=== PATIENT | male | born 1985 | race Caucasian/White ===

== ENCOUNTER 2017-08-07 21:25 | Emergency (ER) | payer OTHER ==
[2017-08-07 21:34] VITALS: RESP 20; TEMP 98.4
[2017-08-07] MEDS ORDERED: SODIUM CHLORIDE 0.9% 1,000 ML IV STA (21:46)
[2017-08-07 22:11] LABS: Basophils # (A) 0.1 k/uL (0-0.2); Basophils % (A) 1 %; Eosinophils # (A) 0.4 k/uL (0-0.7); Eosinophils % (A) 3 %; HCT 52.1 % (39.0-53.0); HGB 17.5 gm/dL (13.0-17.5); Lymphocytes # (A) 4.6 k/uL (1.0-4.8); Lymphocytes % (A) 30 %; MCHC 33.6 g/dL (31.0-37.0); MCV 95.1 fL (80.0-100.0); Mean Platelet Volume 6.9; Monocytes # (A) 0.7 k/uL (0-1.0); Monocytes % (A) 5 %; Neutrophils # (A) 9.4 k/uL (1.3-7.7); Neutrophils % (A) 60 %; Platelet Count 294 k/uL (150-450); RBC 5.48 m/uL (4.30-5.90); RDW 12.3 % (11.5-15.5); WBC 15.5 k/uL (3.8-10.6)
[2017-08-07 22:20] LABS: D-Dimer <0.17 mg/L FEU (<0.60)
[2017-08-07 22:22] LABS: ALT 57 U/L (21-72); AST 28 U/L (17-59); Albumin 4.6 g/dL (3.5-5.0); Alkaline Phosphatase 64 U/L (38-126); Anion Gap 11 mmol/L; Blood Urea Nitrogen 11 mg/dL (9-20); Carbon Dioxide 29 mmol/L (22-30); Chloride 103 mmol/L (98-107); Glucose 101 mg/dL (74-99); Magnesium 2.2 mg/dL (1.6-2.3); Sodium 143 mmol/L (137-145); Total Bilirubin 0.6 mg/dL (0.2-1.3); Total Protein 7.7 g/dL (6.3-8.2)
[2017-08-07 22:22] LABS: Amphetamine Screen,Urine Not Detected (NotDetected); Barbiturate Screen,Urine Not Detected (NotDetected); Benzodiazepines Screen,Urine Not Detected (NotDetected); Cocaine Screen,Urine Not Detected (NotDetected); Methadone Screen, Urine Not Detected (NotDetected); Opiate Screen,Urine Not Detected (NotDetected); Oxycodone Screen, Urine Not Detected (NotDetected); Phencyclidine Screen,Urine Not Detected (NotDetected); Tricyclic Antidepressant,Urine Not Detected (NotDetected); Urn Cannabinoid Scrn Detected (NotDetected)
--- NOTE | 2017-08-07 22:23 | XR ---
EXAMINATION TYPE: XR chest 2V DATE OF EXAM: 08/07/2017 COMPARISON: NONE HISTORY: Chest pain TECHNIQUE: Frontal and lateral views of the chest are obtained. FINDINGS: Heart and mediastinum are normal. Lungs are clear. Diaphragm is normal. There are chest le ads. Bony thorax appears normal. IMPRESSION: Normal chest
[2017-08-07 22:24] LABS: Partial Thromboplastin Time 24.8 sec (22.0-30.0); Prothrombin Time 10.2 sec (9.0-12.0)
--- NOTE | 2017-08-07 22:28 | ED ---
Chest Pain HPI - General Chief Complaint: Chest Pain Stated Complaint: Chest Pain Time Seen by Provider: 08/07/17 21:33 Source: patient Mode of arrival: EMS Limitations: no limitations - History of Present Illness Initial Comments: 31 years old male presented with a palpitation goning on for 3 days he denies any chest pain he said he noticed that time his heart stopped , he denies any history of any coronary artery disease he does smoke and is some time he smokes marijuana as well he denies any street drugs. He said he had some prescription medications but he hasn't taken any for 6 months, it causes those were not working. He denies any headaches no neck stiffness has palpitation has some shortness of breath no abdominal pain no frequency urgency dysuria no symptoms of TIA or CVA. He has a history of PTSD and he is [facility], he denies any suicidal or homicidal ideation. He stated he feels that at times he stops breathing - Related Data Previous Rx's Medication Instructions Recorded Levofloxacin [Levaquin] 500 mg PO DAILY #7 tab 08/07/17 Allergies Allergy/AdvReac Type Severity Reaction Status Date / Time No Known Allergies Allergy Verified 08/07/17 22:04 Review of Systems ROS Statement: Those systems with pertinent positive or pertinent negative responses have been documented in the HPI. ROS Other: All systems not noted in ROS Statement are negative. EKG Findings - EKG Comments: EKG Findings:: EKG is a normal sinus rhythm ventricular rate is 98 MS interval is 150 QRS duration is 76 QT/QTc is 332/423 and review of this EKG does not reveal any ST elevation or ST depression Past Medical History Additional Past Medical History / Comment(s): "Scar tissue on back of heart" History of Any Multi-Drug Resistant Organisms: None Reported Past Surgical History: Orthopedic Surgery Additional Past Surgical History / Comment(s): Right Shoulder sx Past Psychological History: PTSD Smoking Status: Current every day smoker Past Alcohol Use History: None Reported Past Drug Use History: Marijuana General Exam - General Exam Comments Initial Comments: General: The patient is awake and alert, in no distress, and does not appear acutely ill. Skin: Skin is warm and dry and no rashes or lesions are noted. Eye: Pupils are equal, round and reactive to light, extra-ocular movements are intact; there is normal conjunctiva bilaterally. Ears, nose, mouth and throat: There are moist mucous membranes and no oral lesions. Neck: The neck is supple, there is no tenderness or JVD. Cardiovascular: There is a regular rate and rhythm. No murmur, rub or gallop is appreciated. Respiratory: To auscultation bilateral, no wheezing no rhonchi no distress respiratory [place] noticed Gastrointestinal: Soft, non-distended, non-tender abdomen without masses or organomegaly noted. There is no rebound or guarding present. Bowel sounds are unremarkable. Back: There is no tenderness to palpation in the midline. There is no obvious deformity. Musculoskeletal: Normal ROM, no tenderness, There is no pedal edema. There is no calf tenderness or swelling. No cords were appreciated. Neurological: CN II-XII intact, Cranial nerves III through XII are intact. There are no obvious motor or sensory deficits. Coordination appears grossly intact. Speech is normal. 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 White count is elevated is 15.5 and there is a left shift I is a smoker he has been coughing and been bringing up some phlegm for his bronchitis and will prescribe him Levaquin urinalysis was positive for marijuana and he smokes side cardiac stuffed checked out good I discussed all these with the patient and recommended that he follows up with the [facility] as [facility] and he agreed for the period he is advised that if symptoms get worse he needs to come back to ER for further evaluation Disposition Clinical Impression: Palpitation, Apnea, Bronchitis Disposition: HOME SELF-CARE Condition: Good Instructions: Palpitations (ED) Prescriptions: Levofloxacin [Levaquin] 500 mg PO DAILY #7 tab Referrals: [facility],Clinic [Primary Care Provider] - 1-2 days Ashleigh Soliz MD [STAFF PHYSICIAN] - 1-2 days
[2017-08-07 22:32] LABS: Creatine Kinase 79 U/L (55-170); Potassium 4.6 mmol/L (3.5-5.1)
[2017-08-07 22:44] LABS: Creatine Kinase MB <0.2 ng/mL (0.0-2.4); Troponin I <0.012 ng/mL (0.000-0.034)
[2017-08-07] MEDS ORDERED: LEVOFLOXACIN 500 MG TAB PO STA (23:42)
[2017-08-07 23:45] LABS: Appearance,Urine Clear (Clear); Bilirubin,Urine Negative (Negative); Blood,Urine Negative (Negative); Color,Urine Yellow; Glucose,Urine (UA) Negative (Negative); Ketones,Urine Negative (Negative); Leukocyte Esterase,Urine Negative (Negative); Nitrite,Urine Negative (Negative); Protein,Urine Negative (Negative); Specific Gravity,Urine 1.007 (1.001-1.035); Urobilinogen,Urine <2.0 mg/dL (<2.0)
[2017-08-07 23:56] VITALS: BP 108/66; PULSE 102
== END 2017-08-08 00:04 | disposition home or self-care (01) ==
LOC: EC 21:25
DX: J40 Bronchitis, not specified as acute or chronic (principal); R00.2 Palpitations; R06.81 Apnea, not elsewhere classified; D72.829 Elevated white blood cell count, unspecified; F17.200 Nicotine dependence, unspecified, uncomplicated
CPT/HCPCS: 36415; 71046; 80053; 80306; 81003; 82550; 82553; 83735; 84484; 85025; 85379; 85610; 85730; 93005; 96360; 96361; 99285

== ENCOUNTER 2020-04-17 14:19 | Emergency (ER) | payer OTHER ==
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
[2020-04-17 15:12] LABS: Amphetamine Screen,Urine Not Detected (NotDetected); Barbiturate Screen,Urine Not Detected (NotDetected); Benzodiazepines Screen,Urine Not Detected (NotDetected); Cocaine Screen,Urine Not Detected (NotDetected); Methadone Screen, Urine Not Detected (NotDetected); Opiate Screen,Urine Not Detected (NotDetected); Oxycodone Screen, Urine Not Detected (NotDetected); Phencyclidine Screen,Urine Not Detected (NotDetected); Tricyclic Antidepressant,Urine Not Detected (NotDetected); Urn Cannabinoid Scrn Detected (NotDetected)
[2020-04-17 18:58] LABS: Basophils # (A) 0.3 k/uL (0-0.2); Basophils % (A) 2 %; Eosinophils # (A) 0.3 k/uL (0-0.7); Eosinophils % (A) 2 %; HCT 49.9 % (39.0-53.0); HGB 16.6 gm/dL (13.0-17.5); Lymphocytes # (A) 2.8 k/uL (1.0-4.8); Lymphocytes % (A) 19 %; MCH 33.1 pg (25.0-35.0); MCHC 33.2 g/dL (31.0-37.0); MCV 99.7 fL (80.0-100.0); Mean Platelet Volume 6.6; Monocytes # (A) 0.8 k/uL (0-1.0); Monocytes % (A) 5 %; Neutrophils # (A) 10.6 k/uL (1.3-7.7); Neutrophils % (A) 71 %; Platelet Count 250 k/uL (150-450); RDW 12.3 % (11.5-15.5); WBC 14.9 k/uL (3.8-10.6)
[2020-04-17 19:12] LABS: ALT 15 U/L (4-49); AST 24 U/L (17-59); African American GFR (CKD) >90 (>60 ml/min/1.73 sqM); Albumin 4.4 g/dL (3.5-5.0); Alkaline Phosphatase 55 U/L (38-126); Anion Gap 5 mmol/L; Blood Urea Nitrogen 17 mg/dL (9-20); Calcium 9.4 mg/dL (8.4-10.2); Carbon Dioxide 28 mmol/L (22-30); Chloride 106 mmol/L (98-107); Glucose 102 mg/dL (74-99); Non-African American GFR(CKD) >90 (>60 ml/min/1.73 sqM); Sodium 139 mmol/L (137-145); Total Bilirubin 0.7 mg/dL (0.2-1.3); Total Protein 7.2 g/dL (6.3-8.2)
[2020-04-17] MEDS ORDERED: HALOPERIDOL LACTATE 5 MG/ML 1 ML VIAL IM PRN (19:53)
[2020-04-17] MEDS ORDERED: diphenhydrAMINE 50 MG/ML 1 ML VIAL IM STA (19:53)
[2020-04-17] MEDS ORDERED: LORazepam 2 MG/ML INJ IM STA (19:53)
[2020-04-17] MEDS ORDERED: LORazepam 1 MG TAB PO STA (20:02)
[2020-04-17] MEDS ORDERED: diphenhydrAMINE 25 MG CAP PO STA (20:02)
[2020-04-17 20:14] VITALS: RESP 16
[2020-04-17] MEDS ORDERED: NICOTINE 21MG/24HR PATCH TRANSDERM STA (20:19)
[2020-04-18] MEDS ORDERED: NICOTINE 21MG/24HR PATCH TRANSDERM STA (21:12)
[2020-04-19 06:53] LABS: Appearance,Urine Clear (Clear); Bilirubin,Urine Negative (Negative); Blood,Urine Negative (Negative); Color,Urine Yellow; Glucose,Urine (UA) Negative (Negative); Ketones,Urine Negative (Negative); Leukocyte Esterase,Urine Negative (Negative); Nitrite,Urine Negative (Negative); Protein,Urine Negative (Negative); Specific Gravity,Urine 1.013 (1.001-1.035); Urobilinogen,Urine <2.0 mg/dL (<2.0)
[2020-04-19 09:11] VITALS: BP 118/74; PULSE 77; TEMP 98
== END 2020-04-19 09:18 ==
LOC: EC 14:19
DX: F23 Brief psychotic disorder (principal); S30.811A Abrasion of abdominal wall, initial encounter; F17.200 Nicotine dependence, unspecified, uncomplicated; Z20.828 Contact with and (suspected) exposure to other viral communicable diseases; Y35.839A Legal intervention involving a conducted energy device, unspecified person injured, initial encounter
CPT/HCPCS: 82075; 36415 ×2; 93005; 80053; 84443; 85025; 81003; 80306; 80320; 87635; 99285; S4990 ×2